=== PATIENT | male | born 1985 | race African-American/Black ===

== ENCOUNTER 2021-11-24 07:00 | Emergency (ER) | payer MEDICAID ==
[~2021-11-24] VITALS: Ht 180.3 cm; Wt 154.0 kg
[2021-11-24 07:51] LABS: BASOPHILS % 1.1 % (0.0-2.0); EOSINOPHILS % 0.5 % (0.0-5.0); HEMATOCRIT. 49.5 % (42.0-52.0); HEMOGLOBIN. 16.9 g/dL (14.0-18.0); LYMPHOCYTES % 15.3 % (20.0-50.0); MEAN CORPUSCULAR HEMOGLOBIN 33.1 pg (28.0-32.0); MEAN CORPUSCULAR VOLUME 96.7 fL (80.0-94.0); MEAN PLATELET VOLUME 9.6 fl (7.4-10.4); MONOCYTES % 10.7 % (2.0-8.0); NEUTROPHILS % 72.4 % (40.0-76.0); PLATELET 55 x1000/uL (130-400); RED BLOOD CELL COUNT 5.12 mill/uL (4.7-6.1); RED CELL DISTRIBUTION WIDTH 15.9 % (11.6-14.6)
[2021-11-24 07:59] LABS: CHLORIDE 103 mEq/L (98-107)
[2021-11-24 08:03] LABS: ETHANOL BLOOD < 10 mg/dL
[2021-11-24] MEDS ORDERED: SODIUM CHLORIDE 0.9% 1,000 ML IV ONE (08:30)
[2021-11-24] MEDS ORDERED: LORAZEPAM 2MG/ML CPJ IV ONE (08:30)
[2021-11-24] MEDS ORDERED: VERAPAMIL HCL 2.5 MG/1 ML 2ML VIAL IV ONE (08:41)
[2021-11-24] MEDS ORDERED: LIDOCAINE HCL 1% 20ML VIAL (Pyxis) INJ ONE (08:42)
[2021-11-24] MEDS ORDERED: IODIXANOL 320MG/ML 100 ML BOTTLE IV ONE (08:42)
[2021-11-24] MEDS ORDERED: FENTANYL CITRATE/PF 50MCG/ML 2ML VIAL ONE (08:56)
[2021-11-24] MEDS ORDERED: MIDAZOLAM HCL 2 MG/2 ML VIAL ONE (08:56)
[2021-11-24] MEDS ORDERED: DIPHENHYDRAMINE 50MG/ML VIAL ONE (09:20)
[2021-11-24 10:39] VITALS: BP 146/85
[2021-11-24] MEDS ORDERED: FOLIC ACID 1 MG, THIAMINE HCL 100 MG, MVI, ADULT NO.1 10 ML in DEXTROSE 5% WATER 250 ML IV ONE ×4 (13:15)
[2021-11-24] MEDS ORDERED: CHLORDIAZEPOXIDE 25MG CAPSULE PO ONE (13:15)
== END 2021-11-24 08:56 | disposition home or self-care (01) ==
LOC: ER 07:00
DX: F10.239 Alcohol dependence with withdrawal, unspecified (principal); I16.0 Hypertensive urgency; Z20.822 Contact with and (suspected) exposure to COVID-19; Z98.890 Other specified postprocedural states; Y90.0 Blood alcohol level of less than 20 mg/100 ml
CPT/HCPCS: 36415; 70450; 74176; 80053; 80320; 84484; 85025; 87426; 93005; 96361; 96374; 99285; J1200; J1644; J2060; J3411; J3490; J7030; J7070; Q9967; J2250; J3010; G0480

== ENCOUNTER 2022-05-10 16:04 | Inpatient (IN) | payer MEDICAID ==
[~2022-05-10] VITALS: Ht 182.9 cm; Wt 132.9 kg
[2022-05-10] MEDS ORDERED: FOLIC ACID 1 MG, THIAMINE HCL 100 MG, MVI, ADULT NO.1 10 ML in DEXTROSE 5% WATER 1,000 ML IV ONE ×4 (17:30)
[2022-05-10] MEDS ORDERED: DIAZEPAM 5 MG/ML 2ML CPJ IV ONE (17:30)
[2022-05-10] MEDS ORDERED: PANTOPRAZOLE SODIUM 40 MG/VIAL IV ONE (17:30)
[2022-05-10] MEDS ORDERED: OCTREOTIDE 1,000 MCG in SODIUM CHLORIDE 0.9% 100 ML IV ONE (17:30)
[2022-05-10] MEDS ORDERED: OCTREOTIDE 1,000 MCG in SODIUM CHLORIDE 0.9% 100 ML IV NR (17:45)
[2022-05-10] MEDS ORDERED: PANTOPRAZOLE SODIUM 40 MG/VIAL IV NR (17:45)
[2022-05-10 17:59] LABS: HEMATOCRIT. 37.9 % (42.0-52.0); HEMOGLOBIN. 12.8 g/dL (14.0-18.0); MEAN CORPUSCULAR VOLUME 106.6 fL (80.0-94.0); RED BLOOD CELL COUNT 3.55 mill/uL (4.7-6.1); RED CELL DISTRIBUTION WIDTH 15.3 % (11.6-14.6)
[2022-05-10] MEDS ORDERED: DIAZEPAM 5 MG TABLET PO ONE (18:00)
[2022-05-10 18:08] LABS: INR 2.5
[2022-05-10 18:32] LABS: MEAN PLATELET VOLUME 9.6 fl (7.4-10.4); PLATELET 104 x1000/uL (130-400)
[2022-05-10 18:34] LABS: PLATELET ESTIMATE DECREASED
[2022-05-10] MEDS ORDERED: ACETAMINOPHEN 325MG TABLET PO PRN (19:15)
[2022-05-10] MEDS ORDERED: CLONIDINE 0.1MG TABLET PO PRN (19:15)
[2022-05-10] MEDS ORDERED: IPRATROPIUM/ALBUTEROL 0.5-3(2.5)MG/3ML NEB NEB PRN (19:15)
[2022-05-10] MEDS ORDERED: DIAZEPAM 5 MG/ML 2ML CPJ IV PRN (19:15)
[2022-05-10] MEDS ORDERED: MAGNESIUM/ALUMINUM HYDROXIDE/SIMETHICONE 30ML UDC PO PRN (19:15)
[2022-05-10] MEDS ORDERED: ONDANSETRON HCL 4MG/2ML INJ IV PRN (19:15)
[2022-05-10] MEDS ORDERED: NALOXONE HCL 0.4MG/ML VIAL IV PRN (19:30)
[2022-05-10 19:47] LABS: CHLORIDE 91 mEq/L (98-107)
[2022-05-10] MEDS: THIAMINE HCL 100MG TABLET PO SCH (19:51)
[2022-05-10 20:05] LABS: ETHANOL BLOOD < 10 mg/dL
[2022-05-11] VITALS (14 sets, daily range): BP systolic 80–131; BP diastolic 34–76
[2022-05-11] MEDS ORDERED: CALCIUM CHLORIDE 1GM/10ML SYR IV NR (01:30)
[2022-05-11] MEDS ORDERED: SODIUM POLYSTYRENE SULFONATE 15 G/60 ML BOT PO NR (01:30)
[2022-05-11] MEDS ORDERED: DEXTROSE 50% WATER 50ML SYRINGE IV NR (01:30)
[2022-05-11] MEDS ORDERED: INSULIN REGULAR (HUMULIN R) 300UNITS/3ML VIAL IV NR (01:30)
[2022-05-11] MEDS ORDERED: PNEUMOCOCCAL 23-VAL P-SAC VAC 0.5 ML IM ONE (02:00)
[2022-05-11] MEDS ORDERED: HYDRALAZINE 20MG/ML VIAL IV PRN (02:00)
[2022-05-11 03:31] LABS: BG BASE EXCESS -10.5 mmol/L (-2.0-2.0); BG CARBOXYHEMOGLOBIN 1.3 % (0.5-1.5); BG DEOXYHEMOGLOBIN 2.8 % (0.0-5.0); BG FRACTION INSPIRED OXYGEN 21; BG HCO3 ACT 13.8 mmol/L (22.0-26.0); BG METHEMOGLOBIN 0.3 % (0.0-1.5); BG OXYGEN SATURATION 97.2 % (92.0-98.5); BG OXYHEMOGLOBIN 95.6 % (94.0-97.0); BG PCO2 26.6 mmHg (35.0-45.0); BG PH 7.333 (7.350-7.450); BG PO2 98.7 mmHg (75.0-100.0); BG SAMPLE SITE RIGHT RADIAL; BG TOTAL HEMOGLOBIN 12.6 g/dL (12.0-18.0); BG VENT MODE ROOM AIR
[2022-05-11] MEDS: FUROSEMIDE 40MG/4ML VIAL IVP SCH ×2 (03:46→09:05)
[2022-05-11] MEDS: PANTOPRAZOLE SODIUM 40 MG/VIAL IV SCH ×2 (06:15→16:35)
[2022-05-11 06:26] LABS: HEMATOCRIT. 37.2 % (42.0-52.0); HEMOGLOBIN. 12.9 g/dL (14.0-18.0); MEAN CORPUSCULAR HEMOGLOBIN 35.9 pg (28.0-32.0); MEAN CORPUSCULAR VOLUME 103.7 fL (80.0-94.0); RED BLOOD CELL COUNT 3.59 mill/uL (4.7-6.1); RED CELL DISTRIBUTION WIDTH 15.2 % (11.6-14.6)
[2022-05-11 07:58] LABS: PHOSPHORUS 8.1 mg/dL (2.5-4.9)
[2022-05-11 08:44] LABS: PLATELET 87 x1000/uL (130-400)
[2022-05-11 08:48] LABS: PLATELET ESTIMATE DECREASED
[2022-05-11] MEDS: THIAMINE HCL 100MG TABLET PO SCH (09:05)
[2022-05-11] MEDS ORDERED: SODIUM BICARBONATE 8.4% 1 MEQ/ML 50ML SYR IV SCH (11:00)
[2022-05-11] MEDS ORDERED: MANNITOL 12.5G (25%) VIAL 50ML IV SCH (11:30)
[2022-05-11] MEDS ORDERED: LIDOCAINE HCL 1% 10 MG/ML 10ML VIAL ONE (13:01)
[2022-05-11] MEDS ORDERED: HEPARIN 1000 UNITS/ML 10ML ONE (13:01)
[2022-05-11] MEDS: CALCIUM ACETATE 667MG CAPSULE PO SCH (16:34)
[2022-05-11] MEDS: OCTREOTIDE 1,000 MCG in SODIUM CHLORIDE 0.9% 98 ML IV SCH (16:35)
[2022-05-11 16:46] LABS: HEMATOCRIT 35.4 % (42.0-52.0); HEMOGLOBIN 12.1 g/dL (14.0-18.0)
[2022-05-11 17:03] LABS: INR 2.5; PROTHROMBIN TIME 25.3 sec (9.6-11.0)
[2022-05-11 17:15] LABS: TOTAL IRON BINDING CAPACITY 163 ug/dL (250-450)
[2022-05-11 17:32] LABS: FERRITIN 938 ng/mL (22-322)
[2022-05-11 17:34] LABS: HEPATITIS B SURFACE ANTIGEN NEGATIVE
[2022-05-11 17:36] LABS: PARTIAL THROMBOPLASTIN TIME 83.9 sec (23.4-31.0)
[2022-05-11 17:43] LABS: FOLIC ACID (FOLATE) SERUM >20 ng/mL ng/mL (>5.38); VITAMIN B12 SERUM >2000 pg/mL pg/mL (211-911)
[2022-05-11] MEDS: LACTULOSE 20G/30ML UDC PO SCH (18:48)
[2022-05-11] MEDS: CARVEDILOL 3.125 MG TABLET PO SCH (21:00)
[2022-05-11 23:25] LABS: HEMATOCRIT 33.3 % (42.0-52.0); HEMOGLOBIN 11.5 g/dL (14.0-18.0)
[2022-05-12] VITALS: BP 116/59
[2022-05-12] MEDS: LACTULOSE 20G/30ML UDC PO SCH ×3 (01:06→13:54)
[2022-05-12 01:13] LABS: HEMATOCRIT. 32.4 % (42.0-52.0); HEMOGLOBIN. 11.3 g/dL (14.0-18.0); MEAN CORPUSCULAR HEMOGLOBIN 35.7 pg (28.0-32.0); MEAN CORPUSCULAR VOLUME 102.2 fL (80.0-94.0); RED BLOOD CELL COUNT 3.17 mill/uL (4.7-6.1); RED CELL DISTRIBUTION WIDTH 15.2 % (11.6-14.6)
[2022-05-12 01:41] LABS: MEAN PLATELET VOLUME 9.1 fl (7.4-10.4); PLATELET 68 x1000/uL (130-400)
[2022-05-12 03:36] LABS: PLATELET ESTIMATE DECREAS
[2022-05-12 04:00] VITALS: BP 102/57
[2022-05-12 05:10] VITALS: BP 122/56
[2022-05-12] MEDS: PANTOPRAZOLE SODIUM 40 MG/VIAL IV SCH ×2 (05:29→17:34)
[2022-05-12] MEDS: HYDROCODONE/ACETAMINOPHEN 5/325MG TABLET PO PRN (05:49)
[2022-05-12 07:10] LABS: BASOPHILS % 0.5 % (0.0-2.0); EOSINOPHILS % 2.3 % (0.0-5.0); HEMATOCRIT. 32.5 % (42.0-52.0); HEMOGLOBIN. 11.4 g/dL (14.0-18.0); MEAN CORPUSCULAR HEMOGLOBIN 35.9 pg (28.0-32.0); MEAN CORPUSCULAR VOLUME 102.2 fL (80.0-94.0); NEUTROPHILS % 81.2 % (40.0-76.0); PHOSPHORUS 7.6 mg/dL (2.5-4.9); RED BLOOD CELL COUNT 3.18 mill/uL (4.7-6.1)
[2022-05-12 08:00] VITALS: BP 107/56
[2022-05-12] MEDS ORDERED: LORAZEPAM 1MG TABLET PO PRN (08:00)
[2022-05-12] MEDS: CARVEDILOL 3.125 MG TABLET PO SCH ×2 (08:39→21:00)
[2022-05-12] MEDS: OCTREOTIDE 1,000 MCG in SODIUM CHLORIDE 0.9% 98 ML IV SCH (08:48)
[2022-05-12] MEDS: CALCIUM ACETATE 667MG CAPSULE PO SCH ×3 (08:48→17:35)
[2022-05-12 08:56] LABS: PLATELET 73 x1000/uL (130-400)
[2022-05-12 08:57] LABS: MEAN PLATELET VOLUME 10.2 fl (7.4-10.4)
[2022-05-12] MEDS ORDERED: FOLIC ACID 1 MG, THIAMINE HCL 100 MG, MVI, ADULT NO.1 10 ML in DEXT 5%/0.9% NACL 1,000 ML IV SCH ×4 (09:00)
[2022-05-12] MEDS: ACETAMINOPHEN 325MG TABLET PO SCH ×2 (11:41→19:30)
[2022-05-12 12:00] VITALS: BP 117/58
[2022-05-12] MEDS ORDERED: MIDODRINE HCL 5MG TABLET PO SCH (12:15)
[2022-05-12 13:24] LABS: HEMATOCRIT 33.2 % (42.0-52.0); HEMOGLOBIN 11.5 g/dL (14.0-18.0)
[2022-05-12 20:00] VITALS: BP 111/54
[2022-05-13] VITALS (7 sets, daily range): BP systolic 96–128; BP diastolic 35–52
[2022-05-13] MEDS: LACTULOSE 20G/30ML UDC PO SCH ×4 (01:31→21:37)
[2022-05-13] MEDS: OCTREOTIDE 1,000 MCG in SODIUM CHLORIDE 0.9% 98 ML IV SCH ×2 (05:52→23:32)
[2022-05-13] MEDS: PANTOPRAZOLE SODIUM 40 MG/VIAL IV SCH ×2 (05:53→18:25)
[2022-05-13] MEDS: ACETAMINOPHEN 325MG TABLET PO SCH ×3 (05:57→18:30)
[2022-05-13 08:30] LABS: BASOPHILS % 0.4 % (0.0-2.0); HEMATOCRIT. 33.2 % (42.0-52.0); HEMOGLOBIN. 11.4 g/dL (14.0-18.0); LYMPHOCYTES % 7.7 % (20.0-50.0); MEAN CORPUSCULAR HEMOGLOBIN 35.7 pg (28.0-32.0); MEAN PLATELET VOLUME 9.5 fl (7.4-10.4); MONOCYTES % 8.7 % (2.0-8.0); NEUTROPHILS % 80.2 % (40.0-76.0); PLATELET 63 x1000/uL (130-400); RED BLOOD CELL COUNT 3.19 mill/uL (4.7-6.1); RED CELL DISTRIBUTION WIDTH 14.6 % (11.6-14.6)
[2022-05-13 08:33] LABS: INR 2.8; PROTHROMBIN TIME 27.8 sec (9.6-11.0)
[2022-05-13 08:41] LABS: PHOSPHORUS 5.3 mg/dL (2.5-4.9)
[2022-05-13] MEDS: CALCIUM ACETATE 667MG CAPSULE PO SCH ×3 (10:08→18:25)
[2022-05-13] MEDS: FOLIC ACID/VITAMIN B COMP W-C TABLET PO SCH (10:08)
[2022-05-13] MEDS: THIAMINE HCL 100MG TABLET PO SCH (10:08)
[2022-05-13] MEDS: CARVEDILOL 3.125 MG TABLET PO SCH ×2 (10:08→21:00)
[2022-05-13] MEDS: MIDODRINE HCL 5MG TABLET PO SCH ×2 (13:00→17:00)
[2022-05-14 04:00] VITALS: BP 124/61
[2022-05-14] MEDS: ACETAMINOPHEN 325MG TABLET PO SCH ×2 (04:53→13:26)
[2022-05-14] MEDS: LACTULOSE 20G/30ML UDC PO SCH ×3 (05:02→21:20)
[2022-05-14] MEDS: PANTOPRAZOLE SODIUM 40 MG/VIAL IV SCH ×2 (05:02→17:25)
[2022-05-14 07:39] LABS: BASOPHILS % 0.6 % (0.0-2.0); EOSINOPHILS % 3.2 % (0.0-5.0); HEMATOCRIT. 32.2 % (42.0-52.0); HEMOGLOBIN. 11.1 g/dL (14.0-18.0); MEAN CORPUSCULAR HEMOGLOBIN 35.8 pg (28.0-32.0); MEAN CORPUSCULAR VOLUME 103.6 fL (80.0-94.0); MONOCYTES % 7.8 % (2.0-8.0); RED CELL DISTRIBUTION WIDTH 14.6 % (11.6-14.6)
[2022-05-14 08:00] VITALS: BP 105/37
[2022-05-14 08:19] LABS: LYMPHOCYTES % 8.1 % (20.0-50.0); NEUTROPHILS % 80.3 % (40.0-76.0)
[2022-05-14 09:15] LABS: MEAN PLATELET VOLUME 9.4 fl (7.4-10.4); PLATELET 57 x1000/uL (130-400)
[2022-05-14] MEDS: THIAMINE HCL 100MG TABLET PO SCH (09:20)
[2022-05-14] MEDS: CARVEDILOL 3.125 MG TABLET PO SCH ×2 (09:21→21:00)
[2022-05-14] MEDS: CALCIUM ACETATE 667MG CAPSULE PO SCH ×3 (09:21→17:25)
[2022-05-14] MEDS: MIDODRINE HCL 5MG TABLET PO SCH ×3 (09:22→17:25)
[2022-05-14 12:00] VITALS: BP 89/48
[2022-05-14] MEDS: FOLIC ACID/VITAMIN B COMP W-C TABLET PO SCH (13:23)
[2022-05-14 16:00] VITALS: BP 88/33
[2022-05-14 17:00] VITALS: BP 80/33
[2022-05-14] MEDS: OCTREOTIDE 1,000 MCG in SODIUM CHLORIDE 0.9% 98 ML IV SCH (17:59)
[2022-05-14 20:00] VITALS: BP 91/37
[2022-05-15] VITALS (12 sets, daily range): BP systolic 83–107; BP diastolic 35–65
[2022-05-15 03:28] LABS: BASOPHILS % 0.8 % (0.0-2.0); EOSINOPHILS % 2.8 % (0.0-5.0); HEMATOCRIT. 33.3 % (42.0-52.0); HEMOGLOBIN. 11.4 g/dL (14.0-18.0); LYMPHOCYTES % 9.9 % (20.0-50.0); MEAN CORPUSCULAR HEMOGLOBIN 35.3 pg (28.0-32.0); MEAN CORPUSCULAR VOLUME 103.5 fL (80.0-94.0); MONOCYTES % 9.2 % (2.0-8.0); NEUTROPHILS % 77.3 % (40.0-76.0); RED BLOOD CELL COUNT 3.22 mill/uL (4.7-6.1); RED CELL DISTRIBUTION WIDTH 14.8 % (11.6-14.6)
[2022-05-15 03:37] LABS: INR 2.9; PROTHROMBIN TIME 28.3 sec (9.6-11.0)
[2022-05-15 03:42] LABS: CHLORIDE 99 mEq/L (98-107)
[2022-05-15 03:57] LABS: PHOSPHORUS 4.5 mg/dL (2.5-4.9)
[2022-05-15 04:52] LABS: MEAN PLATELET VOLUME 9.9 fl (7.4-10.4); PLATELET 60 x1000/uL (130-400)
[2022-05-15] MEDS: PANTOPRAZOLE SODIUM 40 MG/VIAL IV SCH ×2 (05:43→16:48)
[2022-05-15] MEDS: LACTULOSE 20G/30ML UDC PO SCH ×3 (05:44→21:33)
[2022-05-15] MEDS: CALCIUM ACETATE 667MG CAPSULE PO SCH (07:40)
[2022-05-15] MEDS: MIDODRINE HCL 5MG TABLET PO SCH ×3 (08:48→21:32)
[2022-05-15] MEDS: THIAMINE HCL 100MG TABLET PO SCH (09:00)
[2022-05-15] MEDS: FOLIC ACID/VITAMIN B COMP W-C TABLET PO SCH (09:00)
[2022-05-15] MEDS: CARVEDILOL 3.125 MG TABLET PO SCH ×2 (09:00→21:00)
[2022-05-15] MEDS ORDERED: SODIUM CHLORIDE 0.9% 500 ML IV NR (09:30)
[2022-05-15] MEDS: ACETAMINOPHEN 325MG TABLET PO SCH ×2 (11:30→19:30)
[2022-05-15] MEDS: HYDROCODONE/ACETAMINOPHEN 5/325MG TABLET PO PRN (14:18)
[2022-05-15] MEDS: OCTREOTIDE 1,000 MCG in SODIUM CHLORIDE 0.9% 98 ML IV SCH (16:48)
[2022-05-16] VITALS: BP 92/37
[2022-05-16] MEDS: ACETAMINOPHEN 325MG TABLET PO SCH ×2 (03:30→11:17)
[2022-05-16 04:00] VITALS: BP 89/40
[2022-05-16] MEDS: PANTOPRAZOLE SODIUM 40 MG/VIAL IV SCH ×2 (05:27→16:57)
[2022-05-16] MEDS: LACTULOSE 20G/30ML UDC PO SCH ×3 (05:27→21:25)
[2022-05-16] MEDS: MIDODRINE HCL 5MG TABLET PO SCH ×3 (05:28→21:25)
[2022-05-16 06:09] LABS: BASOPHILS % 0.4 % (0.0-2.0); EOSINOPHILS % 2.2 % (0.0-5.0); HEMATOCRIT. 33.2 % (42.0-52.0); HEMOGLOBIN. 11.5 g/dL (14.0-18.0); LYMPHOCYTES % 8.3 % (20.0-50.0); MEAN CORPUSCULAR HEMOGLOBIN 35.8 pg (28.0-32.0); MEAN CORPUSCULAR VOLUME 103.1 fL (80.0-94.0); MONOCYTES % 9.5 % (2.0-8.0); NEUTROPHILS % 79.6 % (40.0-76.0); RED BLOOD CELL COUNT 3.22 mill/uL (4.7-6.1); RED CELL DISTRIBUTION WIDTH 14.4 % (11.6-14.6)
[2022-05-16 07:26] LABS: CHLORIDE 98 mEq/L (98-107)
[2022-05-16 07:47] LABS: PHOSPHORUS 5.5 mg/dL (2.5-4.9)
[2022-05-16 08:00] VITALS: BP 97/42
[2022-05-16] MEDS: FOLIC ACID/VITAMIN B COMP W-C TABLET PO SCH ×2 (08:15→08:21)
[2022-05-16] MEDS: THIAMINE HCL 100MG TABLET PO SCH ×2 (08:15→08:21)
[2022-05-16] MEDS: ACETAMINOPHEN 325MG TABLET PO PRN (08:17)
[2022-05-16] MEDS: CARVEDILOL 3.125 MG TABLET PO SCH ×2 (08:18→21:00)
[2022-05-16 08:22] LABS: PLATELET 65 x1000/uL (130-400)
[2022-05-16] MEDS: OCTREOTIDE 1,000 MCG in SODIUM CHLORIDE 0.9% 98 ML IV SCH (09:59)
[2022-05-16 12:00] VITALS: BP 93/42
[2022-05-16] MEDS: RIFAXIMIN 550 MG TABLET PO SCH ×2 (15:45→21:25)
[2022-05-16 16:00] VITALS: BP 93/57
[2022-05-16] MEDS: PHYTONADIONE 10MG/ML AMP SUBCUT SCH (16:59)
[2022-05-16 20:00] VITALS: BP 91/43
[2022-05-17] VITALS: BP 102/50
[2022-05-17] MEDS: MORPHINE SULFATE 2 MG/ML CPJ (NOT FOR IM USE) IV PRN ×3 (00:23→18:35)
[2022-05-17 04:00] VITALS: BP 104/44
[2022-05-17] MEDS: PANTOPRAZOLE SODIUM 40 MG/VIAL IV SCH ×2 (04:04→16:15)
[2022-05-17] MEDS: MIDODRINE HCL 5MG TABLET PO SCH ×3 (05:06→21:22)
[2022-05-17] MEDS: LACTULOSE 20G/30ML UDC PO SCH ×3 (05:06→21:22)
[2022-05-17] MEDS: OCTREOTIDE 1,000 MCG in SODIUM CHLORIDE 0.9% 98 ML IV SCH (05:06)
[2022-05-17 07:52] LABS: CHLORIDE 102 mEq/L (98-107)
[2022-05-17 08:00] VITALS: BP 81/43
[2022-05-17 08:04] LABS: BASOPHILS % 0.4 % (0.0-2.0); EOSINOPHILS % 1.8 % (0.0-5.0); HEMATOCRIT. 32.6 % (42.0-52.0); HEMOGLOBIN. 11.3 g/dL (14.0-18.0); LYMPHOCYTES % 7.1 % (20.0-50.0); MEAN CORPUSCULAR HEMOGLOBIN 35.6 pg (28.0-32.0); MEAN CORPUSCULAR VOLUME 102.5 fL (80.0-94.0); MONOCYTES % 9.4 % (2.0-8.0); NEUTROPHILS % 81.3 % (40.0-76.0); RED BLOOD CELL COUNT 3.18 mill/uL (4.7-6.1); RED CELL DISTRIBUTION WIDTH 14.5 % (11.6-14.6)
[2022-05-17] MEDS: FOLIC ACID/VITAMIN B COMP W-C TABLET PO SCH (08:13)
[2022-05-17] MEDS: THIAMINE HCL 100MG TABLET PO SCH (08:13)
[2022-05-17] MEDS: CARVEDILOL 3.125 MG TABLET PO SCH ×2 (08:13→21:00)
[2022-05-17] MEDS: PHYTONADIONE 10MG/ML AMP SUBCUT SCH (08:13)
[2022-05-17] MEDS: RIFAXIMIN 550 MG TABLET PO SCH ×2 (08:13→21:22)
[2022-05-17] MEDS ORDERED: MIDODRINE HCL 5MG TABLET PO NR (08:30)
[2022-05-17] MEDS ORDERED: SODIUM CHLORIDE 0.9% 250 ML IV ONE (08:30)
[2022-05-17 10:30] LABS: PLATELET 61 x1000/uL (130-400)
[2022-05-17 12:00] VITALS: BP 98/50
[2022-05-17 16:00] VITALS: BP 120/56
[2022-05-17 20:00] VITALS: BP 99/49
[2022-05-18] VITALS: BP 116/50
[2022-05-18] MEDS: OCTREOTIDE 1,000 MCG in SODIUM CHLORIDE 0.9% 98 ML IV SCH (01:45)
[2022-05-18 04:00] VITALS: BP 88/52
[2022-05-18] MEDS: PANTOPRAZOLE SODIUM 40 MG/VIAL IV SCH ×2 (05:06→16:22)
[2022-05-18] MEDS: MIDODRINE HCL 5MG TABLET PO SCH ×3 (05:06→21:55)
[2022-05-18] MEDS: LACTULOSE 20G/30ML UDC PO SCH ×3 (05:06→21:54)
[2022-05-18 06:53] LABS: BASOPHILS % 0.4 % (0.0-2.0); EOSINOPHILS % 2.7 % (0.0-5.0); HEMATOCRIT. 33.8 % (42.0-52.0); HEMOGLOBIN. 11.4 g/dL (14.0-18.0); LYMPHOCYTES % 10.1 % (20.0-50.0); MEAN CORPUSCULAR HEMOGLOBIN 35.2 pg (28.0-32.0); MEAN CORPUSCULAR VOLUME 104.2 fL (80.0-94.0); MONOCYTES % 11.3 % (2.0-8.0); NEUTROPHILS % 75.5 % (40.0-76.0); RED BLOOD CELL COUNT 3.25 mill/uL (4.7-6.1); RED CELL DISTRIBUTION WIDTH 14.7 % (11.6-14.6)
[2022-05-18 08:00] VITALS: BP 93/44
[2022-05-18 08:07] LABS: CHLORIDE 100 mEq/L (98-107)
[2022-05-18 08:22] LABS: PLATELET 66 x1000/uL (130-400)
[2022-05-18 08:29] LABS: PHOSPHORUS 5.8 mg/dL (2.5-4.9)
[2022-05-18] MEDS: FOLIC ACID/VITAMIN B COMP W-C TABLET PO SCH (09:00)
[2022-05-18] MEDS: PHYTONADIONE 10MG/ML AMP SUBCUT SCH (09:00)
[2022-05-18] MEDS: CARVEDILOL 3.125 MG TABLET PO SCH ×2 (09:00→20:12)
[2022-05-18] MEDS: RIFAXIMIN 550 MG TABLET PO SCH ×2 (09:00→21:55)
[2022-05-18] MEDS: THIAMINE HCL 100MG TABLET PO SCH (09:00)
[2022-05-18] MEDS: ACETAMINOPHEN 325MG TABLET PO SCH ×2 (11:02→19:30)
[2022-05-18 12:00] VITALS: BP 94/38
[2022-05-18] MEDS: ACETAMINOPHEN 325MG TABLET PO PRN (13:23)
[2022-05-18 16:00] VITALS: BP 81/35
[2022-05-18] MEDS ORDERED: CEFTRIAXONE 2 G PREMIX 50 ML IV SCH (18:15)
[2022-05-18] MEDS ORDERED: CEFTRIAXONE 2 G in DEXTROSE 5% WATER 50 ML IV SCH (19:30)
[2022-05-18 20:00] VITALS: BP 108/66
[2022-05-19] VITALS: BP 108/77
[2022-05-19] MEDS: ACETAMINOPHEN 325MG TABLET PO SCH ×2 (02:58→12:51)
[2022-05-19 04:00] VITALS: BP 98/0
[2022-05-19] MEDS: MIDODRINE HCL 5MG TABLET PO SCH ×2 (05:10→12:46)
[2022-05-19] MEDS: PANTOPRAZOLE SODIUM 40 MG/VIAL IV SCH (05:10)
[2022-05-19] MEDS: LACTULOSE 20G/30ML UDC PO SCH ×2 (05:10→12:45)
[2022-05-19] MEDS ORDERED: MIDO5TAB4 PO (09:21)
[2022-05-19] MEDS: FOLIC ACID/VITAMIN B COMP W-C TABLET PO SCH (09:58)
[2022-05-19] MEDS: THIAMINE HCL 100MG TABLET PO SCH (09:59)
[2022-05-19] MEDS: RIFAXIMIN 550 MG TABLET PO SCH (09:59)
[2022-05-19] MEDS: CARVEDILOL 3.125 MG TABLET PO SCH (09:59)
[2022-05-19 12:05] VITALS: BP 125/75
== END 2022-05-19 15:10 | disposition hospice, home (50) | DRG 280 ==
LOC: ER 16:04 → ENRESERV 18:55 → SUPCPDRO 19:01 → EDBEDREQSVC 21:17 → EDBEDREQTM 21:23 → EDBEDREQSVC 21:23 → EDBEDREQTM 21:33 → ER 22:06 → 8WST 22:52
PROVIDERS: ADMIT Internal Medicine; ATTEND Internal Medicine
PROC: 30233K1 Transfusion of Nonautologous Frozen Plasma into Peripheral Vein, Percutaneous Approach (ICD-10-PCS; principal; 2022-05-11)
PROC: 5A1D70Z Performance of Urinary Filtration, Intermittent, Less than 6 Hours Per Day (ICD-10-PCS; 2022-05-11)
PROC: B543ZZA Ultrasonography of Right Jugular Veins, Guidance (ICD-10-PCS; 2022-05-11)
PROC: 05HM33Z Insertion of Infusion Device into Right Internal Jugular Vein, Percutaneous Approach (ICD-10-PCS; 2022-05-11)
PROC: 5A1D70Z Performance of Urinary Filtration, Intermittent, Less than 6 Hours Per Day (ICD-10-PCS; 2022-05-12)
PROC: 5A1D70Z Performance of Urinary Filtration, Intermittent, Less than 6 Hours Per Day (ICD-10-PCS; 2022-05-14)
PROC: 5A1D70Z Performance of Urinary Filtration, Intermittent, Less than 6 Hours Per Day (ICD-10-PCS; 2022-05-16)
PROC: 5A1D70Z Performance of Urinary Filtration, Intermittent, Less than 6 Hours Per Day (ICD-10-PCS; 2022-05-18)
DX: K70.31 Alcoholic cirrhosis of liver with ascites (principal); K76.7 Hepatorenal syndrome; E43 Unspecified severe protein-calorie malnutrition; F10.231 Alcohol dependence with withdrawal delirium; D69.6 Thrombocytopenia, unspecified; D68.9 Coagulation defect, unspecified; E83.39 Other disorders of phosphorus metabolism; I12.0 Hypertensive chronic kidney disease with stage 5 chronic kidney disease or end stage renal disease; N18.6 End stage renal disease; N17.9 Acute kidney failure, unspecified; E83.51 Hypocalcemia; K92.1 Melena; Z66 Do not resuscitate; E87.4 Mixed disorder of acid-base balance; E88.09 Other disorders of plasma-protein metabolism, not elsewhere classified; E87.1 Hypo-osmolality and hyponatremia; D53.9 Nutritional anemia, unspecified; E87.5 Hyperkalemia; F32.A Depression, unspecified; L89.156 Pressure-induced deep tissue damage of sacral region; E11.65 Type 2 diabetes mellitus with hyperglycemia; K72.10 Chronic hepatic failure without coma; L03.114 Cellulitis of left upper limb; L02.414 Cutaneous abscess of left upper limb; K76.6 Portal hypertension; Z20.822 Contact with and (suspected) exposure to COVID-19; S40.922A Unspecified superficial injury of left upper arm, initial encounter; E11.22 Type 2 diabetes mellitus with diabetic chronic kidney disease; K80.20 Calculus of gallbladder without cholecystitis without obstruction; Z56.0 Unemployment, unspecified; Z82.3 Family history of stroke; Z82.49 Family history of ischemic heart disease and other diseases of the circulatory system; Z99.2 Dependence on renal dialysis; Z83.3 Family history of diabetes mellitus; Z87.891 Personal history of nicotine dependence; Z68.39 Body mass index [BMI] 39.0-39.9, adult
CPT/HCPCS: 36415; 36558; 36573; 36600; 71045; 73200; 76700; 76937; 80048; 80053; 80076; 80320; 82140; 82248; 82270; 82330; 82375; 82607; 82728; 82746; 82805; 83540; 83550; 83735; 84100; 84134; 84145; 85014; 85018; 85025; 85044; 86705; 86709; 86803; 86850; 86900; 86927; 87340; 87426; 93005; 93971; 99285; C1725; C9113; C9803; J0696; J1644; J1815; J1940; J2150; J2270; J2354; J2405; J3411; J3430; J3490; J7042; J7050; J7060; J7070; P9017; G0480